=== PATIENT | female | born 1990 | race African-American/Black ===

== ENCOUNTER 2017-04-29 15:15 | Emergency (ER) | payer OTHER ==
[2017-04-30 09:54] LABS: NEGATIVE OBC STREP NEG; POSITIVE OBC STREP POS
== END 2017-04-29 16:08 | disposition home or self-care (01) ==
LOC: ER 15:15
DX: J02.9 Acute pharyngitis, unspecified (principal); H66.91 Otitis media, unspecified, right ear; F17.200 Nicotine dependence, unspecified, uncomplicated
CPT/HCPCS: 87070; 87880; 99283

== ENCOUNTER 2017-11-23 08:41 | Emergency (ER) | payer OTHER ==
[2017-11-23 08:54] LABS: URINE HCG POC HCG POSITIVE (Negative)
[2017-11-23 09:00] LABS: BILIRUBIN,URINE SMALL (NEG); CLARITY,URINE CLOUDY; COLOR,URINE AMBER; GLUCOSE,URINE NEGATIVE (NEG); NITRITE,URINE NEGATIVE (NEG); PROTEIN,URINE 100 mg/dL (NEG-TRACE)
[2017-11-23 09:05] LABS: BASO % 0 % (0-3); EOS % 0 % (0-3); HEMATOCRIT 44.4 % (36.0-47.0); HEMOGLOBIN 15.7 g/dL (12.0-15.5); LYMPH # 1.4 x10^3/uL (1.0-4.8); LYMPH % 10 % (24-48); MEAN CORPUSCULAR HEMOGLOBIN 34 pg (25-35); MEAN CORPUSCULAR HGB CONC 35 g/dL (31-37); MEAN CORPUSCULAR VOLUME 97 fL (79-100); MONO # 0.7 x10^3/uL (0.0-1.1); MONO % 5 % (0-9); NEUT # 12.6 x10^3uL (1.8-7.7); NEUT % 85 % (31-73); PLATELET COUNT 245 x10^3/uL (140-400); RED BLOOD COUNT 4.59 x10^6/uL (3.50-5.40); RED CELL DISTRIBUTION WIDTH 12.3 % (11.5-14.5); WHITE BLOOD COUNT 14.7 x10^3/uL (4.0-11.0)
[2017-11-23 09:06] LABS: ADD MAN DIFF? YES
[2017-11-23] MEDS: IV NORMAL SALINE 1000ML BAG 1,000 ML IV (09:08)
[2017-11-23] MEDS: ONDANSETRON PF 4 MG/2 ML VIAL. IV ×2 (09:10→09:44)
[2017-11-23 09:14] LABS: ANION GAP 16 (6-14); BLOOD UREA NITROGEN 11 mg/dL (7-20); BUN/CREATININE RATIO 14 (6-20); CALCIUM 9.2 mg/dL (8.5-10.1); CARBON DIOXIDE 22 mmol/L (21-32); CHLORIDE 98 mmol/L (98-107); CREATININE 0.8 mg/dL (0.6-1.0); GFR 104.1; GLUCOSE 113 mg/dL (70-99); POTASSIUM 3.3 mmol/L (3.5-5.1); SODIUM 136 mmol/L (136-145)
[2017-11-23 09:19] LABS: ALBUMIN 4.3 g/dL (3.4-5.0); ALBUMIN/GLOBULIN RATIO 1.1 (1.0-1.7); ALK PHOS 48 U/L (46-116); ALT (SGPT) 17 U/L (14-59); AST (SGOT) 16 U/L (15-37); TOTAL PROTEIN 8.3 g/dL (6.4-8.2)
[2017-11-23 09:27] LABS: BACTERIA,URINE MANY /HPF (0-FEW); SQUAMOUS EPITHELIAL CELL,UR MANY /LPF
[2017-11-23 09:28] LABS: RBC,URINE OCC /HPF (0-2)
[2017-11-23 11:39] LABS: % BANDS 6 % (0-9); % EOS 1 % (0-5); % LYMPHS 17 % (24-48); % MONOS 5 % (0-10); % SEGS 71 % (35-66)
[2017-11-23 11:40] LABS: PLT ESTIMATE ADEQUATE (ADEQUATE)
== END 2017-11-23 11:00 | disposition home or self-care (01) ==
LOC: ER 11:00
DX: O21.9 Vomiting of pregnancy, unspecified (principal); O26.891 Other specified pregnancy related conditions, first trimester; R11.0 Nausea; Z98.890 Other specified postprocedural states; Z3A.00 Weeks of gestation of pregnancy not specified
CPT/HCPCS: 36415; 80053; 81001; 81025; 85007; 85025; 87086; 96361; 96374; 99284; J2405; J7030

== ENCOUNTER 2017-11-26 16:38 | Inpatient (IN) | payer OTHER ==
[2017-11-26 16:49] LABS: URINE HCG POC HCG POSITIVE (Negative)
[2017-11-26] MEDS: ONDANSETRON PF 4 MG/2 ML VIAL. IV ×2 (17:30→20:57)
[2017-11-26 17:36] LABS: BILIRUBIN,URINE SMALL (NEG); CLARITY,URINE CLEAR; GLUCOSE,URINE NEGATIVE (NEG); NITRITE,URINE NEGATIVE (NEG); PROTEIN,URINE 30 mg/dL (NEG-TRACE)
[2017-11-26 17:43] LABS: COLOR,URINE DK YELLOW
[2017-11-26 17:46] LABS: BACTERIA,URINE MANY /HPF (0-FEW); RBC,URINE 0 /HPF (0-2); SQUAMOUS EPITHELIAL CELL,UR MANY /LPF
[2017-11-26 17:53] LABS: ADD MAN DIFF? NO
[2017-11-26] MEDS: IV NORMAL SALINE 1000ML BAG 1,000 ML IV (17:53)
[2017-11-26 17:57] LABS: BASO % 0 % (0-3); EOS % 0 % (0-3); HEMATOCRIT 41.8 % (36.0-47.0); HEMOGLOBIN 14.4 g/dL (12.0-15.5); LYMPH # 2.3 x10^3/uL (1.0-4.8); LYMPH % 15 % (24-48); MEAN CORPUSCULAR HEMOGLOBIN 33 pg (25-35); MEAN CORPUSCULAR HGB CONC 34 g/dL (31-37); MEAN CORPUSCULAR VOLUME 97 fL (79-100); MONO # 0.9 x10^3/uL (0.0-1.1); MONO % 6 % (0-9); NEUT % 79 % (31-73); PLATELET COUNT 240 x10^3/uL (140-400); RED BLOOD COUNT 4.32 x10^6/uL (3.50-5.40); RED CELL DISTRIBUTION WIDTH 12.1 % (11.5-14.5); WHITE BLOOD COUNT 15.2 x10^3/uL (4.0-11.0)
[2017-11-26] MEDS: PROMETHAZINE IM 25 MG/ML VIAL IM (18:10)
[2017-11-26 18:47] LABS: ALBUMIN 3.7 g/dL (3.4-5.0); ALBUMIN/GLOBULIN RATIO 1.1 (1.0-1.7); ALK PHOS 43 U/L (46-116); ALT (SGPT) 42 U/L (14-59); ANION GAP 16 (6-14); AST (SGOT) 33 U/L (15-37); BLOOD UREA NITROGEN 6 mg/dL (7-20); BUN/CREATININE RATIO 10 (6-20); CALCIUM 8.4 mg/dL (8.5-10.1); CARBON DIOXIDE 20 mmol/L (21-32); CHLORIDE 99 mmol/L (98-107); CREATININE 0.6 mg/dL (0.6-1.0); GFR 145.1; GLUCOSE 79 mg/dL (70-99); SODIUM 135 mmol/L (136-145); TOTAL BILIRUBIN 1.5 mg/dL (0.2-1.0)
[2017-11-26 18:48] LABS: POTASSIUM 2.9 mmol/L (3.5-5.1)
[2017-11-26] MEDS: POTASSIUM CHLORIDE 20 MEQ TABLET.ER. PO (19:20)
[2017-11-26 19:50] LABS: MAGNESIUM 1.7 mg/dL (1.8-2.4)
[2017-11-26] MEDS: DEXTROSE 5% IV (20:57)
[2017-11-26] MEDS: LACT RINGERS IV (20:57)
[2017-11-26] MEDS: POTASSIUM CHLORIDE IV (20:57)
[2017-11-26] MEDS ORDERED: PROMETHAZINE 25 MG SUPP.RECT. PR (21:00)
[2017-11-26] MEDS ORDERED: ZOLPIDEM 5 MG TABLET. PO (21:00)
[2017-11-26] MEDS ORDERED: ACETAMINOPHEN 325 MG TABLET. PO (21:00)
[2017-11-27] MEDS: PROMETHAZINE IM 25 MG/ML VIAL IM (01:32)
[2017-11-27 04:48] LABS: ALBUMIN 3.3 g/dL (3.4-5.0); ALBUMIN/GLOBULIN RATIO 1.1 (1.0-1.7); ALK PHOS 34 U/L (46-116); ALT (SGPT) 44 U/L (14-59); ANION GAP 11 (6-14); AST (SGOT) 36 U/L (15-37); BLOOD UREA NITROGEN 5 mg/dL (7-20); BUN/CREATININE RATIO 10 (6-20); CALCIUM 8.6 mg/dL (8.5-10.1); CARBON DIOXIDE 23 mmol/L (21-32); CHLORIDE 104 mmol/L (98-107); CREATININE 0.5 mg/dL (0.6-1.0); GFR 179.1; GLUCOSE 68 mg/dL (70-99); POTASSIUM 3.1 mmol/L (3.5-5.1); SODIUM 138 mmol/L (136-145); TOTAL PROTEIN 6.4 g/dL (6.4-8.2)
[2017-11-27 05:09] LABS: THYROID STIM HORMONE (TSH) 0.381 uIU/mL (0.358-3.74)
[2017-11-27] MEDS: ONDANSETRON IV ×3 (07:34→21:57)
[2017-11-27] MEDS: MULTIVIT INFUSN ADULT K IV (07:34)
[2017-11-27] MEDS: POTASSIUM ACETATE IV (07:34)
[2017-11-27] MEDS: [UNRECOGNIZED DRUG - OTHER] IV (07:34)
[2017-11-27] MEDS ORDERED: POTASSIUM ACETATE IV (09:00)
[2017-11-27] MEDS ORDERED: [UNRECOGNIZED DRUG - OTHER] IV (09:00)
[2017-11-27] MEDS: PRENATAL MULTIVITAMIN TABLET. PO (09:00)
[2017-11-27] MEDS ORDERED: MULTIVIT INFUSN ADULT K IV (09:00)
[2017-11-27] MEDS: POTASSIUM CHLORIDE IV ×2 (15:05→21:57)
[2017-11-27] MEDS: DEXTROSE 5% IV ×2 (15:05→21:57)
[2017-11-27] MEDS: LACT RINGERS IV ×2 (15:05→21:57)
[2017-11-28] MEDS: DEXTROSE 5% IV (05:29)
[2017-11-28] MEDS: LACT RINGERS IV (05:29)
[2017-11-28] MEDS: ONDANSETRON IV (05:29)
[2017-11-28] MEDS: POTASSIUM CHLORIDE IV (05:29)
[2017-11-28 08:21] LABS: ADD MAN DIFF? NO
[2017-11-28 08:25] LABS: BASO % 0 % (0-3); EOS % 0 % (0-3); HEMATOCRIT 34.1 % (36.0-47.0); LYMPH # 1.9 x10^3/uL (1.0-4.8); LYMPH % 20 % (24-48); MEAN CORPUSCULAR HEMOGLOBIN 34 pg (25-35); MEAN CORPUSCULAR HGB CONC 35 g/dL (31-37); MEAN CORPUSCULAR VOLUME 97 fL (79-100); MONO # 0.7 x10^3/uL (0.0-1.1); MONO % 7 % (0-9); NEUT # 6.9 x10^3uL (1.8-7.7); NEUT % 72 % (31-73); PLATELET COUNT 184 x10^3/uL (140-400); RED BLOOD COUNT 3.53 x10^6/uL (3.50-5.40); RED CELL DISTRIBUTION WIDTH 12.2 % (11.5-14.5); WHITE BLOOD COUNT 9.6 x10^3/uL (4.0-11.0)
[2017-11-28] MEDS: MAG HYDROX/ALUMINUM HYD/SIMETH 30 ML ORAL.SUSP PO (09:00)
[2017-11-28 09:19] LABS: ALBUMIN 2.9 g/dL (3.4-5.0); ALK PHOS 42 U/L (46-116); ALT (SGPT) 156 U/L (14-59); ANION GAP 7 (6-14); AST (SGOT) 95 U/L (15-37); BLOOD UREA NITROGEN 2 mg/dL (7-20); BUN/CREATININE RATIO 3 (6-20); CALCIUM 8.1 mg/dL (8.5-10.1); CARBON DIOXIDE 24 mmol/L (21-32); CHLORIDE 106 mmol/L (98-107); CREATININE 0.6 mg/dL (0.6-1.0); GFR 145.1; GLUCOSE 111 mg/dL (70-99); POTASSIUM 3.7 mmol/L (3.5-5.1); SODIUM 137 mmol/L (136-145); TOTAL BILIRUBIN 1.2 mg/dL (0.2-1.0); TOTAL PROTEIN 5.8 g/dL (6.4-8.2)
[2017-11-28] MEDS ORDERED: IV RINGERS,LACTATED 1000ML 1,000 ML IV ×2 (10:00→12:00)
[2017-11-28] MEDS: LANSOPRAZOLE 30 MG TAB.RAP.DR PO (10:30)
[2017-11-29] MEDS: LANSOPRAZOLE 30 MG TAB.RAP.DR PO (08:31)
[2017-11-29] MEDS: PRENATAL MULTIVITAMIN TABLET. PO (08:31)
[2017-11-29] MEDS: ONDANSETRON IV (08:32)
[2017-11-29] MEDS: [UNRECOGNIZED DRUG - OTHER] IV (08:32)
[2017-11-29] MEDS: MULTIVIT INFUSN ADULT K IV (08:32)
[2017-11-29] MEDS: POTASSIUM ACETATE IV (08:32)
== END 2017-11-29 15:00 | disposition home or self-care (01) | DRG 781 ==
LOC: ER 16:38 → 3 NORTH 19:40
DX: O21.1 Hyperemesis gravidarum with metabolic disturbance (principal); O99.611 Diseases of the digestive system complicating pregnancy, first trimester; Z3A.01 Less than 8 weeks gestation of pregnancy; K21.9 Gastro-esophageal reflux disease without esophagitis; O99.281 Endocrine, nutritional and metabolic diseases complicating pregnancy, first trimester; E86.0 Dehydration
CPT/HCPCS: 36415; 76817; 80053; 81001; 81025; 83735; 84443; 84702; 85025; 87086; 96372; 99285-25; J2405; J2550; J3480; J7030

== ENCOUNTER 2017-12-23 09:40 | Emergency (ER) | payer OTHER ==
[~2017-12-23] VITALS: Ht 170.2 cm; Wt 65.8 kg
[~2017-12-23 09:40] MED LIST: AMOX875T PO; CYCL10TA2 PO; METO10TA81 PO; NAPR250T6 PO; ONDA4TAB10 SL
[2017-12-23 09:50] VITALS: BP 130/73
[2017-12-23] MEDS ORDERED: POLY17PO29 PO (10:11)
[2017-12-23] MEDS ORDERED: WITC1MED18 TP (10:11)
[2017-12-23] MEDS ORDERED: DOCU100C28 PO (10:11)
--- NOTE | 2017-12-23 10:21 | PHYS DOC ---
Past Medical History Past Medical History: No Pertinent History Past Surgical History: Alcohol Use: None Drug Use: Marijuana Social History Narrative: last use 2 months ago Adult General Chief Complaint Chief Complaint: BLOODY STOOL [facility] HPI Patient is a 27 year old female who presents with hemorrhoids and constipation. The patient has a known history of chronic constipation and hemorrhoids. She did see some streaking of blood on the tissue paper over the last 24 hours. She has had some irritation around the anus. The patient is 11 weeks gestation and states that her hemorrhoids have been more flared since her started. She did not use any [id number] remedies. She is primarily concerned that she was seeing blood in her stool. She has not had a bowel movement in the last 5 days. She does have the urge to defecate but has unable to do so. Oral pain. No urinary complaints. No vaginal bleeding or discharge. Review of Systems Review of Systems Constitutional: Denies fever or chills Eyes: Denies change in visual acuity HENT: Denies nasal congestion Respiratory: Denies cough Cardiovascular: No additional information not addressed in HPI GI: Denies abdominal pain Musculoskeletal: Denies back pain Integument: Denies rash Neurologic: Denies headache All other systems were reviewed and found to be within normal limits, except as documented in this note. Allergies Allergies Allergies Coded Allergies Type Severity Reaction Last Updated Verified No Known Drug Allergies 11/23/17 No Physical Exam Physical Exam Constitutional: Well developed, well nourished, no acute distress HENT: Normocephalic, atraumatic, bilateral external ears normal, oropharynx moist Neck: Normal range of motion Cardiovascular:Heart rate regular rhythm, no murmur Lungs & Thorax: Bilateral breath sounds clear to auscultation Abdomen: Bowel sounds normal, soft, no tenderness Skin: Warm, dry Back: No tenderness, no CVA tenderness. Extremities: No edema Neurologic: Alert and oriented X 3 Rectal exam: couple of soft external hemorrhoids visualized. Some irritation and excoriated skin over one of them just inside the anal sphincter but no large inflammation or thrombosis Current Patient Data Vital Signs Vital Signs Date Time Temp Pulse Resp B/P (MAP) Pulse Ox O2 Delivery O2 Flow Rate FiO2 12/23/17 09:50 98.3 78 14 130/73 (92) 99 Room Air 98.3 Lab Values Laboratory Tests Test 12/23/17 09:55 POC Urine HCG, Qualitative Hcg positive (Negative) EKG EKG [] Radiology/Procedures Radiology/Procedures [] Course & Med Decision Making Course & Med Decision Making Pertinent Labs and Imaging studies reviewed. (See chart for details) Patient is seen in the ER for hemorrhoids and constipation. She has no acute findings on her physical examination. Her abdominal exam is benign. I offered the patient the option of enema in the ER but she declines and states she would rather do this at home. She is going to be discharged home with tox medicated pad prescription, docusate twice a day, MiraLAX 2-3 times daily until she has loose stools and then titrated down. Patient is agreeable to this plan of care. All her questions are answered prior to discharge. She does have f/u with her OB in 20 days but will return to the ER sooner if she has new problems or worsening sx. Lorion Disclaimer Dragon Disclaimer This electronic medical record was generated, in whole or in part, using a voice recognition dictation system. Departure Departure Impression: Primary Impression: Constipation Additional Impression: Hemorrhoid Disposition: 01 HOME, SELF-CARE Condition: GOOD Patient Instructions: Constipation, Adult, Hemorrhoids, [id number] Scripts Jad Santana ([facility]) 1 Each Med..pad 1 EACH TP UD, #40 PAD Apply to hemorrhoids 3-4 times daily as needed for comfort Prov: FERNANDO ROGERS DO 12/23/17 Polyethylene Glycol 3350 (MIRALAX) 17 Gm Powd.pack 1 PACKET PO UD, #30 PACKET 1 Refill Take 1-3 packets daily until you have loose stools, then reduce to once or twice daily as needed for constipation Prov: FERNANDO ROGERS DO 12/23/17 Docusate Sodium (DOCUSATE SODIUM) 100 Mg Capsule 100 MG PO BID, #60 CAP 1 Refill Prov: FERNANDO ROGERS DO 12/23/17 Problem Qualifiers FERNANDO ROGERS DO Dec 23, 2017 10:20
== END 2017-12-23 10:30 | disposition home or self-care (01) ==
LOC: ER 09:40
DX: O22.41 Hemorrhoids in pregnancy, first trimester (principal); K59.09 Other constipation; Z3A.11 11 weeks gestation of pregnancy
CPT/HCPCS: 81025; 99283

== ENCOUNTER 2018-06-20 03:07 | Observation (INO) | payer OTHER ==
[~2018-06-20 03:07] MED LIST changes: +DOCU100C28 PO; +POLY17PO29 PO; +WITC1MED18 TP
[2018-06-20 03:29] LABS: BILIRUBIN,URINE NEGATIVE (NEG); CLARITY,URINE CLEAR; COLOR,URINE YELLOW; NITRITE,URINE NEGATIVE (NEG); PROTEIN,URINE NEGATIVE (NEG-TRACE)
[2018-06-20] MEDS ORDERED: IV RINGERS,LACTATED 1000ML 1,000 ML IV SCH (03:30)
[2018-06-20 03:35] LABS: BACTERIA,URINE FEW /HPF (0-FEW); BARBITURATES NEG (NEG); BENZODIAZEPINES NEG (NEG); CANNABINOIDS POS (NEG); COCAINE NEG (NEG); METHADONE NEG (NEG); OPIATES NEG (NEG); PHENCYCLIDINE NEG (NEG); SQUAMOUS EPITHELIAL CELL,UR MANY /LPF
[2018-06-20 03:36] LABS: AMPHETAMINE/METHAMPHETAMINE NEG (NEG)
== END 2018-06-20 05:33 | disposition home or self-care (01) ==
LOC: 3 SO LND 03:07
PROVIDERS: ADMIT Specialist; ATTEND Specialist
DX: O62.9 Abnormality of forces of labor, unspecified (principal); O26.893 Other specified pregnancy related conditions, third trimester; N89.8 Other specified noninflammatory disorders of vagina; Z3A.37 37 weeks gestation of pregnancy
CPT/HCPCS: 80307; 81001; 87086; G0378; G0379

== ENCOUNTER 2018-06-30 05:33 | Inpatient (IN) | payer OTHER ==
[~2018-06-30] VITALS: Ht 170.2 cm; Wt 84.4 kg
[2018-06-30] VITALS (7 sets, daily range): BP systolic 107–120; BP diastolic 64–76
[2018-06-30] MEDS ORDERED: 0.9 % SODIUM CHLORIDE 10 ML DISP.SYRIN. IV PRN ×2 (05:45→08:00)
[2018-06-30] MEDS ORDERED: CITRIC ACID/SODIUM CITRATE 30 ML SOLUTION. PO PRN (05:45)
[2018-06-30] MEDS ORDERED: IV RINGERS,LACTATED 1000ML 1,000 ML IV SCH (05:45)
[2018-06-30] MEDS ORDERED: OXYTOCIN 30 UNIT/500 ML PREMIX 500 ML IV PRN ×2 (05:45→08:00)
[2018-06-30 06:18] LABS: BILIRUBIN,URINE NEGATIVE (NEG); CLARITY,URINE CLEAR; COLOR,URINE YELLOW; NITRITE,URINE NEGATIVE (NEG); PROTEIN,URINE NEGATIVE (NEG-TRACE)
[2018-06-30 06:41] LABS: BASO % 0 % (0-3); EOS % 0 % (0-3); HEMATOCRIT 34.8 % (36.0-47.0); HEMOGLOBIN 11.7 g/dL (12.0-15.5); LYMPH % 21 % (24-48); MEAN CORPUSCULAR HEMOGLOBIN 32 pg (25-35); MEAN CORPUSCULAR HGB CONC 34 g/dL (31-37); MEAN CORPUSCULAR VOLUME 95 fL (79-100); MONO # 0.8 x10^3/uL (0.0-1.1); MONO % 8 % (0-9); NEUT # 6.9 x10^3uL (1.8-7.7); NEUT % 71 % (31-73); PLATELET COUNT 212 x10^3/uL (140-400); RED BLOOD COUNT 3.66 x10^6/uL (3.50-5.40); RED CELL DISTRIBUTION WIDTH 13.7 % (11.5-14.5); WHITE BLOOD COUNT 9.7 x10^3/uL (4.0-11.0)
[2018-06-30 06:42] LABS: BACTERIA,URINE FEW /HPF (0-FEW); RBC,URINE 0 /HPF (0-2); SQUAMOUS EPITHELIAL CELL,UR MANY /LPF
[2018-06-30] MEDS: IV RINGERS,LACTATED 1000ML 1,000 ML IV SCH ×3 (07:11→23:04)
[2018-06-30] MEDS ORDERED: OXYTOCIN 10 UNIT/ML VIAL. ONE (07:18)
[2018-06-30] MEDS ORDERED: FAMOTIDINE 20 MG/2 ML VIAL ONE (07:19)
[2018-06-30] MEDS ORDERED: BUPIVACAINE MPF 0.75% DEXTROSE 2 ML AMPUL. ONE (07:19)
[2018-06-30] MEDS ORDERED: ONDANSETRON PF 4 MG/2 ML VIAL. ONE (07:19)
[2018-06-30] MEDS ORDERED: METOCLOPRAMIDE HCL 10 MG/2 ML VIAL. ONE (07:19)
[2018-06-30] MEDS ORDERED: MORPHINE PF 5 MG/10 ML VIAL. ONE (07:20)
[2018-06-30] MEDS ORDERED: fentaNYL PF VIAL 100 MCG/2 ML VIAL ONE (07:20)
[2018-06-30] MEDS ORDERED: ZOLPIDEM 5 MG TABLET. PO PRN (08:00)
[2018-06-30] MEDS ORDERED: MAGNESIUM HYDROXIDE 2,400 MG/30 ML ORAL.SUSP. PO PRN (08:00)
[2018-06-30] MEDS ORDERED: MAG HYDROX/ALUMINUM HYD/SIMETH 30 ML ORAL.SUSP PO PRN (08:00)
[2018-06-30] MEDS ORDERED: ONDANSETRON PF 4 MG/2 ML VIAL. IV PRN (08:00)
[2018-06-30] MEDS ORDERED: MMR per PROTOCOL. MC PRN (08:00)
[2018-06-30] MEDS ORDERED: SIMETHICONE 80 MG TAB.CHEW PO PRN (08:00)
--- NOTE | 2018-06-30 08:05 | PDOC1 ---
OB - History Hx of Present Care: Good Care Ultrasounds: Normal mid trimester US Obstetrical Complications: None Medical Complications: None Past Family/Social History * Past Medical, Surgical, Family and Obstetric Histories reviewed from chart. Blood Type: A+ Rubella: Immune RPR/VDRL: Negative GBS Status: Positive HBsAG: Negative OB - Chief Complaint & HPI Date of Admission: Date of Admission: Jun 30, 2018 at 05:33 Chief Complaint/History : 3 Para: 2 EDC: Jun 30, 2018 Reason for admission: section Indication for : desires repeat Admission Nurse Assessment Rev: Yes OB - Admission Exam Physical Exam Vitals: VS - Last 72 Hours, by Label Date Time Temp Pulse Resp B/P (MAP) Pulse Ox O2 Delivery O2 Flow Rate FiO2 06/30/18 06:15 82 115/70 (85) 06/30/18 06:05 98.6 20 98.6 06/30/18 06:00 98.5 20 Room Air 98.5 Heart: Regular Rate Lungs: Clear, Equal Abdomen: Gravid Extremities: Normal Pulses, No tenderness or swelling Reflexes: Normal Cervical Dilatation: None Effacement: 0% Membranes: Intact Heart Rate: Normal Accelerations: Accelerations Present Decelerations: No decelerations Short Term Variability: Present Contractions on Admission: >10 Minutes Apart Intensity: Mild Assessment/Plan Assessment/Plan TIUP Desires RLTOMEKA/ANTHONY GENAO MD Jun 30, 2018 08:05
--- NOTE | 2018-06-30 09:17 | PDOC ---
BRIEF OPERATIVE NOTE Pre-Op Diagnosis TIUP Post-Op Diagnosis Same desires RLTC/S Procedure Performed RLTC/S Surgeon Melinda Anesthesia Type: General Blood Loss 700cc Findings Female 6#8oz Complications None Operative Note Dictated ANTHONY ANNE MD Jun 30, 2018 09:17
[2018-06-30] MEDS: KETOROLAC 30 MG/ML VIAL. IV PRN ×2 (11:21→20:26)
--- NOTE | 2018-06-30 12:14 | OP ---
DATE OF SURGERY: 06/30/2018 PREOPERATIVE DIAGNOSIS: Term intrauterine , desires repeat section. POSTOPERATIVE DIAGNOSIS: Term intrauterine , desires repeat section. PROCEDURE: Repeat low transverse . SURGEON: Mukund Lawrence M.D. SCARF GLUER: None. ANESTHESIA: Regional. ESTIMATED BLOOD LOSS: 700 mL. FLUIDS: Crystalloid. FINDINGS: A 6 pound 8 ounce female , Apgars 8, 9 and 9. Normal uterus, tubes and ovaries. Very dense fascial scar tissue with diastasis of rectus bellies in the inferior with no direct attachment from the uterus to the posterior fascia, filmy omental adhesions noted. Tubes and ovaries bilaterally appeared normal. COMPLICATIONS: None. CONDITION: Stable. DESCRIPTION OF PROCEDURE: Risks, benefits, indications and alternatives discussed in detail with the patient. The patient was brought to OR theater, placed in the supine position with left lateral uterine displacement. After adequate regional anesthesia, the patient was prepped and draped in usual sterile manner. A previous Pfannenstiel incision was taken out in total with scalpel and Bovie cautery. Subcutaneous tissues taken down to rectus fascia. Rectus fascia has dense scar tissue from the underlying distally adhered rectus muscle both sharply and bluntly with Bovie cautery, gloved hand and scalpel. A window was created with gentle stretch on the rectus muscle. A room was made for delivery of the infant. A bladder blade was placed. Low transverse hysterotomy incision was made way above the reflection of the bladder, extended laterally and superiorly with bandage scissors. Membranes were noted. Membranes ruptured with Allis clamp. Clear fluid was noted. Gloved hand was placed within the lower uterine segment, used to elevate the head with fundal pressure from the college sports assistant. was delivered on anterior abdominal wall, cried spontaneously, moved all extremities, was bulb suctioned, doubly clamped the cord, transected cord between two clamps and handed to nursing care in attendance. Cord blood samples were taken. Placenta delivered spontaneously intact, 3-vessel cord. Uterus was wiped free of any adherent membranes. Low transverse hysterotomy incision was reapproximated with a 0 Monocryl in a running locking manner and imbricated with 0 Monocryl in a vertical mattress stitch fashion. The 2 previous lap sponges were placed in the gutters bilaterally were removed. The tubes and ovaries were inspected. The urine was clear. Secondary to the diastasis of rectus muscle and previous , the rectus muscles were unable to be reapproximated in the midline as well as the peritoneum was unable to be reapproximated. Rectus fascia was reapproximated with ____ self-retaining stitch of 0. Subcutaneous tissue was irrigated copiously with warm normal saline. Skin was reapproximated with Insorb juany. Sponge, needle and instrument counts correct x 2 per nursing staff. The patient went to postop anesthesia recovery in stable condition. MUKUND LAWRENCE MD DR: ADITYA/shayan JOB#: [id number] / [id number]
[2018-06-30] MEDS: IBUPROFEN 400 MG TABLET. PO SCH ×2 (14:00→22:00)
[2018-06-30] MEDS: diphenhydrAMINE ORAL ELIXIR 12.5 MG/5 ML ML PO PRN ×2 (15:07→21:04)
[2018-06-30] MEDS: ceFAZolin SODIUM 1 GM in IV DEXTROSE 5% 50 ML IV SCH (15:55)
[2018-06-30] MEDS: FERROUS SULFATE 325 MG TABLET. PO SCH (17:00)
[2018-07-01] MEDS: ceFAZolin SODIUM 1 GM in IV DEXTROSE 5% 50 ML IV SCH ×2 (00:07→08:00)
[2018-07-01 00:14] VITALS: BP 112/69
[2018-07-01 04:20] LABS: BASO % 0 % (0-3); EOS % 0 % (0-3); HEMATOCRIT 30.3 % (36.0-47.0); HEMOGLOBIN 10.1 g/dL (12.0-15.5); LYMPH # 1.2 x10^3/uL (1.0-4.8); LYMPH % 13 % (24-48); MEAN CORPUSCULAR HEMOGLOBIN 32 pg (25-35); MEAN CORPUSCULAR HGB CONC 33 g/dL (31-37); MEAN CORPUSCULAR VOLUME 96 fL (79-100); MONO # 0.8 x10^3/uL (0.0-1.1); MONO % 8 % (0-9); NEUT # 7.5 x10^3uL (1.8-7.7); NEUT % 79 % (31-73); PLATELET COUNT 161 x10^3/uL (140-400); RED BLOOD COUNT 3.16 x10^6/uL (3.50-5.40); RED CELL DISTRIBUTION WIDTH 13.6 % (11.5-14.5); WHITE BLOOD COUNT 9.5 x10^3/uL (4.0-11.0)
[2018-07-01] MEDS: DOCUSATE SODIUM 100 MG CAPSULE. PO PRN ×2 (04:34→19:46)
[2018-07-01 04:46] VITALS: BP 119/73
[2018-07-01] MEDS: IBUPROFEN 400 MG TABLET. PO SCH ×3 (06:00→19:45)
[2018-07-01] MEDS: IV RINGERS,LACTATED 1000ML 1,000 ML IV SCH (06:07)
[2018-07-01] MEDS: FERROUS SULFATE 325 MG TABLET. PO SCH ×2 (08:00→16:16)
[2018-07-01] MEDS: oxyCODONE/APAP 5/325 1 TAB TABLET PO PRN ×3 (09:17→19:47)
[2018-07-01 10:45] VITALS: BP 114/74
[2018-07-01] MEDS ORDERED: DIPHTH,PERTUSS(ACELL),TET TOX 0.5 ML DISP.SYRIN. VAX IM ONE (12:00)
--- NOTE | 2018-07-01 12:46 | PDOC ---
OB Progress Note Date of Service 07/01/18 Time of Evaluation 1245 Notes PT. feeling well. Pain controlled. Lab Laboratory Tests Test 06/30/18 06:00 06/30/18 06:20 07/01/18 03:40 Urine Collection Type Unknown Urine Color Yellow Urine Clarity Clear Urine pH 6.0 Urine Specific [place] 1.015 Urine Protein Negative mg/dL (NEG-TRACE) Urine Glucose (UA) Negative mg/dL (NEG) Urine Ketones (Stick) Negative mg/dL (NEG) Urine Blood Negative (NEG) Urine Nitrite Negative (NEG) Urine Bilirubin Negative (NEG) Urine Urobilinogen Dipstick 1.0 mg/dL (0.2 mg/dL) Urine Leukocyte Esterase Moderate (NEG) Urine RBC 0 /HPF (0-2) Urine WBC 1-4 /HPF (0-4) Urine Squamous Epithelial Cells Many /LPF Urine Bacteria Few /HPF (0-FEW) White Blood Count 9.7 x10^3/uL (4.0-11.0) 9.5 x10^3/uL (4.0-11.0) Red Blood Count 3.66 x10^6/uL (3.50-5.40) 3.16 x10^6/uL (3.50-5.40) Hemoglobin 11.7 g/dL (12.0-15.5) 10.1 g/dL (12.0-15.5) Hematocrit 34.8 % (36.0-47.0) 30.3 % (36.0-47.0) Mean Corpuscular Volume 95 fL (79-100) 96 fL (79-100) Mean Corpuscular Hemoglobin 32 pg (25-35) 32 pg (25-35) Mean Corpuscular Hemoglobin Concent 34 g/dL (31-37) 33 g/dL (31-37) Red Cell Distribution Width 13.7 % (11.5-14.5) 13.6 % (11.5-14.5) Platelet Count 212 x10^3/uL (140-400) 161 x10^3/uL (140-400) Neutrophils (%) (Auto) 71 % (31-73) 79 % (31-73) Lymphocytes (%) (Auto) 21 % (24-48) 13 % (24-48) Monocytes (%) (Auto) 8 % (0-9) 8 % (0-9) Eosinophils (%) (Auto) 0 % (0-3) 0 % (0-3) Basophils (%) (Auto) 0 % (0-3) 0 % (0-3) Neutrophils # (Auto) 6.9 x10^3uL (1.8-7.7) 7.5 x10^3uL (1.8-7.7) Lymphocytes # (Auto) 2.0 x10^3/uL (1.0-4.8) 1.2 x10^3/uL (1.0-4.8) Monocytes # (Auto) 0.8 x10^3/uL (0.0-1.1) 0.8 x10^3/uL (0.0-1.1) Eosinophils # (Auto) 0.0 x10^3/uL (0.0-0.7) 0.0 x10^3/uL (0.0-0.7) Basophils # (Auto) 0.0 x10^3/uL (0.0-0.2) 0.0 x10^3/uL (0.0-0.2) Treponema pallidum Antibody Nonreactive (Nonreactive) Laboratory Tests Test 07/01/18 03:40 White Blood Count 9.5 x10^3/uL (4.0-11.0) Red Blood Count 3.16 x10^6/uL (3.50-5.40) Hemoglobin 10.1 g/dL (12.0-15.5) Hematocrit 30.3 % (36.0-47.0) Mean Corpuscular Volume 96 fL (79-100) Mean Corpuscular Hemoglobin 32 pg (25-35) Mean Corpuscular Hemoglobin Concent 33 g/dL (31-37) Red Cell Distribution Width 13.6 % (11.5-14.5) Platelet Count 161 x10^3/uL (140-400) Neutrophils (%) (Auto) 79 % (31-73) Lymphocytes (%) (Auto) 13 % (24-48) Monocytes (%) (Auto) 8 % (0-9) Eosinophils (%) (Auto) 0 % (0-3) Basophils (%) (Auto) 0 % (0-3) Neutrophils # (Auto) 7.5 x10^3uL (1.8-7.7) Lymphocytes # (Auto) 1.2 x10^3/uL (1.0-4.8) Monocytes # (Auto) 0.8 x10^3/uL (0.0-1.1) Eosinophils # (Auto) 0.0 x10^3/uL (0.0-0.7) Basophils # (Auto) 0.0 x10^3/uL (0.0-0.2) Medications Current Medications Sodium Chloride (Normal Saline Flush) 3 ml QSHIFT PRN IV AFTER MEDS AND BLOOD DRAWS; Start 06/30/18 at 05:45; Stop 06/30/18 at 12:30; Status DC Citric Acid/ Sodium Citrate (Bicitra) 30 ml 1X PRN PRN PO DYSPEPSIA Last administered on 06/30/18at 08:04; Start 06/30/18 at 05:45; Stop 06/30/18 at 12:30 ; Status DC Oxytocin/Sodium Chloride 500 ml @ 0 mls/hr CONT PRN PRN IV Post delivery bleeding; Start 06/30/18 at 05:45; Stop 06/30/18 at 12:30; Status DC Ringer's Solution 1,000 ml @ 1,000 mls/hr Q1H IV Last administered on at 06:28; Start 06/30/18 at 05:45; Stop 06/30/18 at 06:44; Status DC Ringer's Solution 1,000 ml @ 125 mls/hr Q8H IV Last administered on 06/30/18at 23:04; Start 06/30/18 at 07:30 Cefazolin Sodium/ Dextrose 50 ml @ 100 mls/hr 1X ONCE IV Last administered on 06/30/18at 08:04; Start 06/30/18 at 06:00; Stop 06/30/18 at 12:30; Status DC Ketorolac Tromethamine (Toradol 30mg Vial) 30 mg PRN Q6HRS PRN IV PAIN Last administered on 06/30/18at 20:26; Start 06/30/18 at 07:30; Stop 07/05/18 at 07:29 Oxytocin (Pitocin) 10 unit STK-MED ONCE .ROUTE ; Start 06/30/18 at 07:18; Stop 06/30/18 at 12:30; Status DC Ephedrine Sulfate (Akovaz) 50 mg STK-MED ONCE .ROUTE ; Start 06/30/18 at 07:18; Stop 06/30/18 at 12:30; Status DC Famotidine (Pepcid Vial) 20 mg STK-MED ONCE .ROUTE ; Start 06/30/18 at 07:19; Stop 06/30/18 at 12:30; Status DC Metoclopramide HCl (Reglan Vial) 10 mg STK-MED ONCE .ROUTE ; Start 06/30/18 at 07:19; Stop 06/30/18 at 12:30; Status DC Ondansetron HCl (Zofran) 4 mg STK-MED ONCE .ROUTE ; Start 06/30/18 at 07:19; Stop 06/30/18 at 12:30; Status DC Bupivacaine HCl/ Dextrose (Marcaine Spinal 0.75%) 2 ml STK-MED ONCE .ROUTE ; Start 06/30/18 at 07:19; Stop 06/30/18 at 12:30; Status DC Morphine Sulfate (Morphine Preservative Free) 5 mg STK-MED ONCE .ROUTE ; Start 06/30/18 at 07:20; Stop 06/30/18 at 12:30; Status DC Fentanyl Citrate (Fentanyl 2ml Vial) 100 mcg STK-MED ONCE .ROUTE ; Start at 07:20; Stop 06/30/18 at 12:30; Status DC Sodium Chloride (Normal Saline Flush) 3 ml QSHIFT PRN IV AFTER MEDS AND BLOOD DRAWS; Start 06/30/18 at 08:00 Oxytocin/Sodium Chloride 500 ml @ 125 mls/hr CONT PRN IV EXCESSIVE POST- BLEEDING; Start 06/30/18 at 08:00; Stop 06/30/18 at 12:30; Status DC Ibuprofen (Motrin) 800 mg Q8HRS PO Last administered on 07/01/18at 09:17; Start 06/30/18 at 14:00 Ondansetron HCl (Zofran) 4 mg PRN Q6HRS PRN IV NAUSEA/VOMITING Last administered on 06/30/18at 12:53; Start 06/30/18 at 08:00 Docusate Sodium (Colace) 100 mg PRN BID PRN PO HARD STOOLS Last administered on 07/01/18at 04:34; Start 06/30/18 at 08:00 Magnesium Hydroxide (Milk Of Magnesia) 2,400 mg PRN DAILY PRN PO CONSTIPATION; Start 06/30/18 at 08:00 Al Hydroxide/Mg Hydroxide (Mylanta Plus Xs) 30 ml PRN Q4HRS PRN PO HEARTBURN / GAS; Start 06/30/18 at 08:00 Simethicone (Gas-X) 80 mg PRN AFTMEALHC PRN PO GAS / BLOATING; Start 06/30/18 at 08:00 Diphenhydramine HCl (Benadryl Oral Elixir) 12.5 mg PRN Q6HRS PRN PO ITCHING Last administered on 06/30/18at 21:04; Start 06/30/18 at 08:00 Ferrous Sulfate (Feosol) 325 mg BIDWMEALS PO ; Start 06/30/18 at 17:00 Zolpidem Tartrate (Ambien) 5 mg PRN QHS PRN PO INSOMNIA, MAY REPEAT X1; Start 06/30/18 at 08:00 Info (Do NOT chart on this placeholder) 1 ea PRN 1X PRN MC SEE COMMENTS; Start 06/30/18 at 08:00 Info (Do NOT chart on this placeholder) 1 ea PRN 1X PRN MC SEE COMMENTS; Start 06/30/18 at 08:00; Stop 06/30/18 at 12:30; Status DC Oxycodone/ Acetaminophen (Percocet 5/325) 1 tab PRN Q4HRS PRN PO MILD PAIN Last administered on 07/01/18at 09:17; Start 06/30/18 at 08:00 Oxycodone/ Acetaminophen (Percocet 5/325) 2 tab PRN Q4HRS PRN PO MODERATE PAIN , SEVERE PAIN; Start 06/30/18 at 08:00 Cefazolin Sodium 1 gm/Dextrose 50 ml @ 100 mls/hr Q8H IV Last administered on 07/01/18at 00:07; Start 06/30/18 at 16:00; Stop 07/01/18 at 08:29; Status DC Diphtheria/ Tetanus/Acell Pertussis (Boostrix) 0.5 ml ONCE ONCE VAX IM ; Start 07/01/18 at 12:00; Stop 07/01/18 at 12:01; Status DC Active Scripts Active Tucks (Jad Santana) 1 Each Med..pad 1 Each TP UD Apply to hemorrhoids 3-4 times daily as needed for comfort Miralax (Polyethylene Glycol 3350) 17 Gm Powd.pack 1 Packet PO UD Take 1-3 packets daily until you have loose stools, then reduce to once or twice daily as needed for constipation Docusate Sodium 100 Mg Capsule 100 Mg PO BID Reglan (Metoclopramide Hcl) 10 Mg Tablet 1 Tab PO TID Zofran Odt (Ondansetron) 4 Mg Tab.rapdis 1 Tab SL Q8HRS Reported No Known Medications Prior To Admisstion (Info) Each 1 Each MC Exam Abd: soft, mild tenderness, fundus firm Incision site: clean, dry and intact Assessment POD#1 s/p c/s Plan of Care: Continue current Tx, Mgmt KENN RODRIGUEZ Jr, MD Jul 01, 2018 12:46
[2018-07-01 16:14] VITALS: BP 110/71
[2018-07-01 22:30] VITALS: BP 117/70
[2018-07-02] MEDS: oxyCODONE/APAP 5/325 1 TAB TABLET PO PRN ×3 (05:33→18:20)
[2018-07-02] MEDS: DOCUSATE SODIUM 100 MG CAPSULE. PO PRN ×2 (05:33→16:55)
[2018-07-02] MEDS: IBUPROFEN 400 MG TABLET. PO SCH ×3 (05:33→22:00)
[2018-07-02 05:45] VITALS: BP 119/73
[2018-07-02 10:30] VITALS: BP 120/76
--- NOTE | 2018-07-02 17:02 | PDOC ---
OB Progress Note Date of Service 07/02/18 Time of Evaluation 1700 Notes Pt. feeling well. No complaints. Lab Laboratory Tests Test 07/01/18 03:40 White Blood Count 9.5 x10^3/uL (4.0-11.0) Red Blood Count 3.16 x10^6/uL (3.50-5.40) Hemoglobin 10.1 g/dL (12.0-15.5) Hematocrit 30.3 % (36.0-47.0) Mean Corpuscular Volume 96 fL (79-100) Mean Corpuscular Hemoglobin 32 pg (25-35) Mean Corpuscular Hemoglobin Concent 33 g/dL (31-37) Red Cell Distribution Width 13.6 % (11.5-14.5) Platelet Count 161 x10^3/uL (140-400) Neutrophils (%) (Auto) 79 % (31-73) Lymphocytes (%) (Auto) 13 % (24-48) Monocytes (%) (Auto) 8 % (0-9) Eosinophils (%) (Auto) 0 % (0-3) Basophils (%) (Auto) 0 % (0-3) Neutrophils # (Auto) 7.5 x10^3uL (1.8-7.7) Lymphocytes # (Auto) 1.2 x10^3/uL (1.0-4.8) Monocytes # (Auto) 0.8 x10^3/uL (0.0-1.1) Eosinophils # (Auto) 0.0 x10^3/uL (0.0-0.7) Basophils # (Auto) 0.0 x10^3/uL (0.0-0.2) Medications Current Medications Sodium Chloride (Normal Saline Flush) 3 ml QSHIFT PRN IV AFTER MEDS AND BLOOD DRAWS; Start 06/30/18 at 05:45; Stop 06/30/18 at 12:30; Status DC Citric Acid/ Sodium Citrate (Bicitra) 30 ml 1X PRN PRN PO DYSPEPSIA Last administered on 06/30/18at 08:04; Start 06/30/18 at 05:45; Stop 06/30/18 at 12:30 ; Status DC Oxytocin/Sodium Chloride 500 ml @ 0 mls/hr CONT PRN PRN IV Post delivery bleeding; Start 06/30/18 at 05:45; Stop 06/30/18 at 12:30; Status DC Ringer's Solution 1,000 ml @ 1,000 mls/hr Q1H IV Last administered on at 06:28; Start 06/30/18 at 05:45; Stop 06/30/18 at 06:44; Status DC Ringer's Solution 1,000 ml @ 125 mls/hr Q8H IV Last administered on 06/30/18at 23:04; Start 06/30/18 at 07:30; Stop 07/01/18 at 16:18; Status DC Cefazolin Sodium/ Dextrose 50 ml @ 100 mls/hr 1X ONCE IV Last administered on 06/30/18at 08:04; Start 06/30/18 at 06:00; Stop 06/30/18 at 12:30; Status DC Ketorolac Tromethamine (Toradol 30mg Vial) 30 mg PRN Q6HRS PRN IV PAIN Last administered on 06/30/18at 20:26; Start 06/30/18 at 07:30; Stop 07/01/18 at 16:18 ; Status DC Oxytocin (Pitocin) 10 unit STK-MED ONCE .ROUTE ; Start 06/30/18 at 07:18; Stop 06/30/18 at 12:30; Status DC Ephedrine Sulfate (Akovaz) 50 mg STK-MED ONCE .ROUTE ; Start 06/30/18 at 07:18; Stop 06/30/18 at 12:30; Status DC Famotidine (Pepcid Vial) 20 mg STK-MED ONCE .ROUTE ; Start 06/30/18 at 07:19; Stop 06/30/18 at 12:30; Status DC Metoclopramide HCl (Reglan Vial) 10 mg STK-MED ONCE .ROUTE ; Start 06/30/18 at 07:19; Stop 06/30/18 at 12:30; Status DC Ondansetron HCl (Zofran) 4 mg STK-MED ONCE .ROUTE ; Start 06/30/18 at 07:19; Stop 06/30/18 at 12:30; Status DC Bupivacaine HCl/ Dextrose (Marcaine Spinal 0.75%) 2 ml STK-MED ONCE .ROUTE ; Start 06/30/18 at 07:19; Stop 06/30/18 at 12:30; Status DC Morphine Sulfate (Morphine Preservative Free) 5 mg STK-MED ONCE .ROUTE ; Start 06/30/18 at 07:20; Stop 06/30/18 at 12:30; Status DC Fentanyl Citrate (Fentanyl 2ml Vial) 100 mcg STK-MED ONCE .ROUTE ; Start at 07:20; Stop 06/30/18 at 12:30; Status DC Sodium Chloride (Normal Saline Flush) 3 ml QSHIFT PRN IV AFTER MEDS AND BLOOD DRAWS; Start 06/30/18 at 08:00; Stop 07/01/18 at 16:18; Status DC Oxytocin/Sodium Chloride 500 ml @ 125 mls/hr CONT PRN IV EXCESSIVE POST- BLEEDING; Start 06/30/18 at 08:00; Stop 06/30/18 at 12:30; Status DC Ibuprofen (Motrin) 800 mg Q8HRS PO Last administered on 07/02/18at 16:55; Start 06/30/18 at 14:00 Ondansetron HCl (Zofran) 4 mg PRN Q6HRS PRN IV NAUSEA/VOMITING Last administered on 06/30/18at 12:53; Start 06/30/18 at 08:00; Stop 07/01/18 at 16:18 ; Status DC Docusate Sodium (Colace) 100 mg PRN BID PRN PO HARD STOOLS Last administered on 07/02/18at 16:55; Start 06/30/18 at 08:00 Magnesium Hydroxide (Milk Of Magnesia) 2,400 mg PRN DAILY PRN PO CONSTIPATION; Start 06/30/18 at 08:00 Al Hydroxide/Mg Hydroxide (Mylanta Plus Xs) 30 ml PRN Q4HRS PRN PO HEARTBURN / GAS; Start 06/30/18 at 08:00 Simethicone (Gas-X) 80 mg PRN AFTMEALHC PRN PO GAS / BLOATING Last administered on 07/01/18at 14:38; Start 06/30/18 at 08:00 Diphenhydramine HCl (Benadryl Oral Elixir) 12.5 mg PRN Q6HRS PRN PO ITCHING Last administered on 06/30/18at 21:04; Start 06/30/18 at 08:00 Ferrous Sulfate (Feosol) 325 mg BIDWMEALS PO ; Start 06/30/18 at 17:00; Stop 04/09 at 16:18; Status DC Zolpidem Tartrate (Ambien) 5 mg PRN QHS PRN PO INSOMNIA, MAY REPEAT X1; Start 06/30/18 at 08:00 Info (Do NOT chart on this placeholder) 1 ea PRN 1X PRN MC SEE COMMENTS; Start 06/30/18 at 08:00 Info (Do NOT chart on this placeholder) 1 ea PRN 1X PRN MC SEE COMMENTS; Start 06/30/18 at 08:00; Stop 06/30/18 at 12:30; Status DC Oxycodone/ Acetaminophen (Percocet 5/325) 1 tab PRN Q4HRS PRN PO MILD PAIN Last administered on 07/01/18at 09:17; Start 06/30/18 at 08:00 Oxycodone/ Acetaminophen (Percocet 5/325) 2 tab PRN Q4HRS PRN PO MODERATE PAIN , SEVERE PAIN Last administered on 07/02/18at 11:54; Start 06/30/18 at 08:00 Cefazolin Sodium 1 gm/Dextrose 50 ml @ 100 mls/hr Q8H IV Last administered on 07/01/18at 00:07; Start 06/30/18 at 16:00; Stop 07/01/18 at 08:29; Status DC Diphtheria/ Tetanus/Acell Pertussis (Boostrix) 0.5 ml ONCE ONCE VAX IM ; Start 07/01/18 at 12:00; Stop 07/01/18 at 12:01; Status DC Active Scripts Active Tucks (Jad Santana) 1 Each Med..pad 1 Each TP UD Apply to hemorrhoids 3-4 times daily as needed for comfort Miralax (Polyethylene Glycol 3350) 17 Gm Powd.pack 1 Packet PO UD Take 1-3 packets daily until you have loose stools, then reduce to once or twice daily as needed for constipation Docusate Sodium 100 Mg Capsule 100 Mg PO BID Reglan (Metoclopramide Hcl) 10 Mg Tablet 1 Tab PO TID Zofran Odt (Ondansetron) 4 Mg Tab.rapdis 1 Tab SL Q8HRS Reported No Known Medications Prior To Admisstion (Info) Each 1 Each MC Exam Abd: soft, non tender, fundus firm Incision site: clean, dry and intact Assessment POD#2 s/p c/s Plan of Care: Continue current Tx, Mgmt KENN RODRIGUEZ Jr, MD Jul 02, 2018 17:02
[2018-07-02 17:14] VITALS: BP 122/77
[2018-07-02 22:59] VITALS: BP 120/76
[2018-07-03] MEDS: IBUPROFEN 400 MG TABLET. PO SCH ×2 (06:15→13:12)
[2018-07-03 06:18] VITALS: BP 124/80
[2018-07-03] MEDS: DOCUSATE SODIUM 100 MG CAPSULE. PO PRN (06:24)
[2018-07-03] MEDS: oxyCODONE/APAP 5/325 1 TAB TABLET PO PRN ×2 (06:25→13:12)
[2018-07-03 10:45] VITALS: BP 118/78
--- NOTE | 2018-07-03 11:08 | PDOC3 ---
OB DISCHARGE SUMMARY DATE OF ADMISSION: 06/30/18 DATE OF DISCHARGE: 07/03/18 REASON FOR ADMISSION: section INTRAPARTUM PROCEDURES: : Low Cerv Trans DISCHARGE DIAGNOSIS: Term Delivered DISCHARGE INFORMATION: Activity (ad bladimir), Diet (regular), Instructions (pelvic rest x 6 wks, no driving x 2 wks, no lifting > 20 lbs. x 6 wks) HOSPITAL COURSE Term gestation delivered via section without complications. KENN RODRIGUEZ Jr, MD Jul 03, 2018 11:08
--- NOTE | 2018-07-03 11:13 | DISCH ---
DISCHARGE INSTRUCTIONS Condition on Discharge Condition on Discharge: Stable Activity After Discharge Activity Instructions for Disc: Activity as tolerated Bathing Instructions: Shower-keep dressing dry Lifting Instructions after Dis: No heavy lifting, No pulling or pushing Driving Instructions after Dis: No driving for 2 weeks Diet after Discharge Diet after Discharge: Regular Contacting the DRKarla after DC Call your doctor for: Concerns you may have Follow-Up Follow up with: Dr. Lawrence in 1 week. KENN RODRIGUEZ Jr, MD Jul 03, 2018 11:13
[2018-07-03] MEDS ORDERED: OXYC1TAB15 PO (11:16)
[2018-07-03] MEDS ORDERED: NAPR-683 PO (11:16)
[2018-07-03] MEDS ORDERED: DOCU100C28 PO (11:16)
== END 2018-07-03 14:08 | disposition home or self-care (01) | DRG 787 ==
LOC: 3 SO LND 05:33
PROVIDERS: ADMIT Specialist; ATTEND Specialist
PROC: 10D00Z1 Extraction of Products of Conception, Low, Open Approach (ICD-10-PCS; principal; 2018-07-03)
DX: O34.211 Maternal care for low transverse scar from previous cesarean delivery (principal); R71.0 Precipitous drop in hematocrit; Z37.0 Single live birth; Z3A.39 39 weeks gestation of pregnancy; O99.02 Anemia complicating childbirth
CPT/HCPCS: 36415; 81001; 85025; 86592; 86850; 86900; 86901; 87086; 90471; 90715; J0690; J0696; J1885; J2270; J2405; J2590; J2765; J3010; J3490; J7120

== ENCOUNTER 2021-09-18 17:24 | Emergency (ER) | payer OTHER ==
[~2021-09-18] VITALS: Ht 172.7 cm; Wt 79.5 kg
[~2021-09-18 17:24] MED LIST changes: +CYCL10TA19 PO; -CYCL10TA2 PO; +NAPR-683 PO; +NAPR-699 PO; -NAPR250T6 PO; +OXYC1TAB15 PO
[2021-09-18 18:11] LABS: BASO # 0.1 x10^3/uL (0.0-0.2); BASO % 1 % (0-3); EOS # 0.1 x10^3/uL (0.0-0.7); EOS % 1 % (0-3); HEMATOCRIT 39.1 % (36.0-47.0); HEMOGLOBIN 13.6 g/dL (12.0-15.5); LYMPH # 2.4 x10^3/uL (1.0-4.8); LYMPH % 23 % (24-48); MEAN CORPUSCULAR HEMOGLOBIN 34 pg (25-35); MEAN CORPUSCULAR HGB CONC 35 g/dL (31-37); MEAN CORPUSCULAR VOLUME 98 fL (79-100); MONO # 0.8 x10^3/uL (0.0-1.1); MONO % 8 % (0-9); NEUT # 6.9 x10^3/uL (1.8-7.7); NEUT % 67 % (31-73); PLATELET COUNT 189 x10^3/uL (140-400); RED CELL DISTRIBUTION WIDTH 12.2 % (11.5-14.5); WHITE BLOOD COUNT 10.3 x10^3/uL (4.0-11.0)
[2021-09-18 18:22] LABS: CALCIUM 8.4 mg/dL (8.5-10.1); CREATININE 0.6 mg/dL (0.6-1.0); GFR 141.1; POTASSIUM 3.1 mmol/L (3.5-5.1)
[2021-09-18 18:25] LABS: ALBUMIN 3.6 g/dL (3.4-5.0); ALBUMIN/GLOBULIN RATIO 1.1 (1.0-1.7); TOTAL BILIRUBIN 0.9 mg/dL (0.2-1.0)
[2021-09-18 18:36] LABS: BACTERIA,URINE 0 /HPF (0-FEW)
--- NOTE | 2021-09-18 20:11 | RAD ---
US OB <14 WKS +TV History: Reason: vag bleeding / Spl. Instructions: / History: Comparison: None. Technique: Grayscale and color Doppler imaging of the pelvis was performed using transabdominal techn ique. Findings: The uterus measures 11.2 x 6.1 x 6.0 cm. Single intrauterine gestational sac with regular appearance. Yolk sac is identified. pole is al so identified with crown-rump length 0.26 cm. Estimated gestational age by ultrasound 5 weeks 6 days. heart rate 112 bpm. No perigestational fluid collection. Right ovary not identified due to positioning and overlying structures. Left ovary measures 4.0 x 2.1 x 2.0 cm. Normal Doppler flow to the left ovary. IMPRESSION: 1. Single intrauterine with with gestational age 5 weeks 6 days and heart rate 112 b pm. Recommend routine anatomic screening at 18-22 weeks. Electronically signed by: Coy Figueroa DO (09/18/2021 8:09 PM) [facility]
--- NOTE | 2021-09-18 20:28 | PHYS DOC ---
Past Medical History Past Medical History: No Pertinent History Past Surgical History: No Surgical History Smoking Status: Current Every Day Smoker Alcohol Use: None Drug Use: Marijuana General Adult EDM: Chief Complaint: VAGINAL BLEEDING HPI: HPI: Patient is a 31 year old female who presents with positive test here yesterday and some vaginal bleeding. Patient states that yesterday, she noticed some blood on the tissue when she wiped after going to the bathroom. Today, she noticed the same. She has additional complaint of vaginal odor. Patient denies dysuria, hematuria, dyspareunia, abdominal pain. Review of Systems: Review of Systems: Constitutional: Denies fever, chills or generalized weakness Eyes: Denies change in visual acuity, visual field deficits or discharge HENT: Denies ear pain, nasal congestion or sore throat Respiratory: Denies cough or shortness of breath Cardiovascular: Denies chest pain, palpitations or edema GI: Denies abdominal pain, nausea, vomiting, bloody stools or diarrhea : See HPI Musculoskeletal: Denies back pain or joint pain Integument: Denies rash or other skin lesion Neurologic: Denies headache, focal weakness or sensory changes Heart Score: C/O Chest Pain: No Allergies: Allergies: Allergies Coded Allergies Type Severity Reaction Last Updated Verified No Known Drug Allergies 09/18/21 No Physical Exam: PE: Constitutional: Well developed, well nourished, no acute distress, non-toxic appearance. HENT: Normocephalic, atraumatic, bilateral external ears normal. Eyes: EOMI, conjunctiva pink and moist, no discharge. Neck: Normal range of motion, no stridor. Thorax: Full thoracic expansion, no increased work of breathing. Abdomen: Soft, no tenderness, no masses, no pulsatile masses. Skin: Warm, dry, no erythema, no rash. Extremities: No cyanosis, no clubbing, ROM intact, no edema. Neurologic: Alert and oriented x4, normal motor function, normal sensory function, no focal deficits noted. Current Patient Data: Labs: Laboratory Tests Test 09/18/21 17:33 09/18/21 17:45 09/18/21 18:02 Urine Collection Type Unknown Urine Color (Auto) Yellow Urine Turbidity Hazy Urine pH (Auto) 6.0 (<5.0-8.0) Urine Specific [place] 1.031 (1.000-1.030) Urine Protein (Auto) Negative mg/dL (Negative) Urine Glucose (Auto)(UA) Negative mg/dL (Negative) Urine Ketones (Auto) 150 mg/dL (Negative) Urine Blood (Auto) Moderate (Negative) Urine Nitrite Negative (Negative) Urine Bilirubin (Auto) Negative (Negative) Urine Urobilinogen (Auto) 2 mg/dL (Normal) Urine Leukocyte Esterase (Auto) Negative (Negative) Urine RBC 6-10 /HPF (0-2) Urine WBC 1-4 /HPF (0-4) Urine Squamous Epithelial Cells Many /LPF Urine Bacteria 0 /HPF (0-FEW) POC Urine HCG, Qualitative Hcg positive (Negative) White Blood Count 10.3 x10^3/uL (4.0-11.0) Red Blood Count 4.00 x10^6/uL (3.50-5.40) Hemoglobin 13.6 g/dL (12.0-15.5) Hematocrit 39.1 % (36.0-47.0) Mean Corpuscular Volume 98 fL (79-100) Mean Corpuscular Hemoglobin 34 pg (25-35) Mean Corpuscular Hemoglobin Concent 35 g/dL (31-37) Red Cell Distribution Width 12.2 % (11.5-14.5) Platelet Count 189 x10^3/uL (140-400) Neutrophils (%) (Auto) 67 % (31-73) Lymphocytes (%) (Auto) 23 % (24-48) L Monocytes (%) (Auto) 8 % (0-9) Eosinophils (%) (Auto) 1 % (0-3) Basophils (%) (Auto) 1 % (0-3) Neutrophils # (Auto) 6.9 x10^3/uL (1.8-7.7) Lymphocytes # (Auto) 2.4 x10^3/uL (1.0-4.8) Monocytes # (Auto) 0.8 x10^3/uL (0.0-1.1) Eosinophils # (Auto) 0.1 x10^3/uL (0.0-0.7) Basophils # (Auto) 0.1 x10^3/uL (0.0-0.2) Maternal Serum HCG Beta Subunit 66763 mIU/mL (0-5) H Sodium Level 139 mmol/L (136-145) Potassium Level 3.1 mmol/L (3.5-5.1) L Chloride Level 104 mmol/L (98-107) Carbon Dioxide Level 21 mmol/L (21-32) Anion Gap 14 (6-14) Blood Urea Nitrogen 7 mg/dL (7-20) Creatinine 0.6 mg/dL (0.6-1.0) Estimated GFR (Cockcroft-Gault) 141.1 BUN/Creatinine Ratio 12 (6-20) Glucose Level 73 mg/dL (70-99) Calcium Level 8.4 mg/dL (8.5-10.1) L Total Bilirubin 0.9 mg/dL (0.2-1.0) Aspartate Amino Transferase (AST) 11 U/L (15-37) L Alanine Aminotransferase (ALT) 10 U/L (14-59) L Alkaline Phosphatase 39 U/L (46-116) L Total Protein 7.0 g/dL (6.4-8.2) Albumin 3.6 g/dL (3.4-5.0) Albumin/Globulin Ratio 1.1 (1.0-1.7) Laboratory Tests 09/18/21 18:02 Laboratory Tests 09/18/21 18:02 YEAST NONE SEEN TRICHOMONAS NONE SEEN CLUE CELLS CLUE CELLS PRESENT ALTERED PHYLLIS ALTERED PHYLLIS PRESENT SUGGESTIVE OF BACTERIAL VAGINOSIS SQUAMOUS EPS MANY Vital Signs: Vital Signs Date Time Temp Pulse Resp B/P (MAP) Pulse Ox O2 Delivery O2 Flow Rate FiO2 09/18/21 20:35 52 123/75 (91) 100 Room Air 09/18/21 20:05 53 127/53 (77) 99 Room Air 09/18/21 17:30 98.3 67 14 133/71 (91) 100 Room Air 98.3 Radiology/Procedures: Radiology/Procedures: PROCEDURE: OB < 14 WKS US OB <14 WKS +TV History: Reason: vag bleeding / Spl. Instructions: / History: Comparison: None. Technique: Grayscale and color Doppler imaging of the pelvis was performed using transabdominal technique. Findings: The uterus measures 11.2 x 6.1 x 6.0 cm. Single intrauterine gestational sac with regular appearance. Yolk sac is identified. pole is also identified with crown-rump length 0.26 cm. Estimated gestational age by ultrasound 5 weeks 6 days. heart rate 112 bpm. No perigestational fluid collection. Right ovary not identified due to positioning and overlying structures. Left ovary measures 4.0 x 2.1 x 2.0 cm. Normal Doppler flow to the left ovary. IMPRESSION: 1. Single intrauterine with with gestational age 5 weeks 6 days and heart rate 112 bpm. Recommend routine anatomic screening at 18-22 weeks. Electronically signed by: Coy Figueroa DO (09/18/2021 8:09 PM) [facility] Course & Med Decision Making: Course & Med Decision Making Pertinent Labs and Imaging studies reviewed. (See chart for details) Patient is a 31-year-old female who had a positive test and scant vaginal bleeding yesterday. Work-up today reveals a viable, single IUP aged at approximately 5 weeks and 6 days. Patient additionally has bacterial vaginosis. Patient was made aware of all findings. Referral for [facility] here [facility] was provided so that she may establish care here, to which she is agreeable. All of her questions were answered. Patient understands and is agreeable to discharge plan. Dragon Disclaimer: Dragon Disclaimer: This electronic medical record was generated, in whole or in part, using a voice recognition dictation system. Departure Departure Impression: Primary Impression: Scant vaginal bleeding Additional Impressions: with 5 to 13 completed weeks gestation Bacterial vaginitis Disposition: 01 HOME / SELF CARE / HOMELESS Condition: GOOD Referrals: NO PCP (PCP) KAMILLE HUANG MD Patient Instructions: Bacterial Vaginosis, [id number], Vaginal Bleeding During , [id number] Additional Instructions: EMERGENCY DEPARTMENT GENERAL DISCHARGE INSTRUCTIONS Thank you for coming to [facility] Emergency Department (ED) today and trusting us with you care. We trust that you had a positive experience in our Emergency Department. If you wish to speak to the department management, you may call the director at . YOUR FOLLOW UP INSTRUCTIONS ARE FOLLOWS: 1. Follow up with your primary care doctor. If you do not have a primary doctor, please ask for a resource list of physicians or clinics that may be able to assist you with follow up care. 2. The emergency provider has interpreted your imaging studies, if any were ordered. The radiology hr specialist also reviewed them. If there is a change in the findings, you will be notified in 48 hours when at all possible. 3. If a lab test or culture has been done, your results will be reviewed and you will be notified if you need a change in treatment. 4. Follow instructions verbalized to you and refer to the printouts if needed. ADDITIONAL INSTRUCTIONS AND INFORMATION: 1. Your care today has been supervised by a physician who is specially trained in emergency care. Many problems require more than one evaluation for a complete diagnosis and treatment. We recommend that you schedule your follow up appointment as recommended to ensure complete treatment of you illness or injury. If you are unable to obtain follow up care and continue to have a problem, or if your condition worsens, we recommend that you return to the ED. 2. We are not able to safely determine your condition over the phone nor are we able to give sound medical advice over the phone. For these safety reasons, if you call for medical advice we will ask you to come to the ED for further evaluation. 3. If you have any questions regarding these discharge instructions please call the ED at . SAFETY INFORMATION: In the interest of safety, wellness, and injury prevention; we encourage you to wear your seat belt, if you smoke; quite smoking, and we encourage family to use a protective helmet for bicycling and other sporting events that present an increased risk for head injury. IF YOUR SYMPTOMS WORSEN OR NEW SYMPTOMS DEVELOP, OR YOU HAVE CONCERNS ABOUT YOUR CONDITION; OR IF YOUR CONDITION WORSENS WHILE YOU ARE WAITING FOR YOUR FOLLOW UP APPOINTMENT; EITHER CONTACT YOUR PRIMARY CARE DOCTOR, THE PHYSICIAN WHOSE NAME AND NUMBER YOU WERE GIVEN, OR RETURN TO THE ED IMMEDIATELY. Scripts Metronidazole (METROGEL) 60 Gm Gel..gram. 60 GM TP HS for 7 Days, #7 EACH Prov: STEPH MEADOWS 09/18/21 STEPH MEADOWS September 18, 2021 20:28
[2021-09-18 20:35] VITALS: BP 123/75
[2021-09-18] MEDS ORDERED: METR60GE TP (20:52)
== END 2021-09-18 20:56 | disposition home or self-care (01) ==
LOC: ER 17:24
DX: O46.91 Antepartum hemorrhage, unspecified, first trimester (principal); O23.591 Infection of other part of genital tract in pregnancy, first trimester; B96.89 Other specified bacterial agents as the cause of diseases classified elsewhere; O99.331 Smoking (tobacco) complicating pregnancy, first trimester; Z3A.01 Less than 8 weeks gestation of pregnancy
CPT/HCPCS: 36415; 76801; 80053; 81001; 81025; 84702; 85025; 86900; 86901; 99284; Q0111